=== PATIENT | male | born 1955 | race Caucasian/White ===

== ENCOUNTER 2020-03-21 17:21 | Emergency (ER) | payer BC ==
[~2020-03-21] VITALS: Ht 170.2 cm; Wt 79.5 kg
[2020-03-21] MEDS ORDERED: HYDROcodone/acetaminophen 10/325mg tab PO ONE (18:15)
[2020-03-21] MEDS ORDERED: LIDOcaine 1% W/epiNEPHrine 1:200,000 10ml vial IJ ONE (18:15)
[2020-03-21] MEDS ORDERED: CefTRIAXone/D5W-Rocephin 1gm 50 ML IV ONE (19:15)
[2020-03-21] MEDS ORDERED: HYDR-4383 PO (19:36)
[2020-03-21 20:04] VITALS: BP 138/85
== END 2020-03-21 20:14 | disposition home or self-care (01) ==
LOC: ER 17:22
DX: M79.645 Pain in left finger(s) (principal); Z89.022 Acquired absence of left finger(s); Z79.899 Other long term (current) drug therapy
CPT/HCPCS: 64450; 73140; 96365; 99284; J0696

== ENCOUNTER 2020-03-24 13:56 | Emergency (ER) | payer BC ==
[~2020-03-24] VITALS: Ht 170.2 cm; Wt 79.5 kg
[~2020-03-24 13:56] MED LIST: HYDR-4383 PO
[2020-03-24 13:57] VITALS: BP 159/102
== END 2020-03-24 15:07 | disposition home or self-care (01) ==
LOC: ER 13:56
DX: G89.18 Other acute postprocedural pain (principal); Z88.1 Allergy status to other antibiotic agents; Z88.5 Allergy status to narcotic agent
CPT/HCPCS: 29130; 99283